=== PATIENT | female | born 1975 | race Caucasian/White ===

== ENCOUNTER 2016-11-10 22:56 | Emergency (ER) | payer MEDICAID ==
[2016-11-11 00:50] VITALS: BP 124/72
== END 2016-11-11 00:50 | disposition home or self-care (01) ==
LOC: ED 22:56
DX: S91.201A Unspecified open wound of right great toe with damage to nail, initial encounter (principal); E07.9 Disorder of thyroid, unspecified; W22.03XA Walked into furniture, initial encounter; Y93.89 Activity, other specified; Y99.8 Other external cause status; Y92.89 Other specified places as the place of occurrence of the external cause
CPT/HCPCS: J1885

== ENCOUNTER 2017-02-10 01:06 | Emergency (ER) | payer MEDICAID ==
[2017-02-10 01:53] VITALS: BP 126/89
== END 2017-02-10 01:53 | disposition home or self-care (01) ==
LOC: ED 01:06
DX: N39.0 Urinary tract infection, site not specified (principal)

== ENCOUNTER 2017-06-17 09:13 | Emergency (ER) | payer MEDICAID ==
[~2017-06-17] VITALS: Ht 152.4 cm; Wt 66.7 kg
[2017-06-17 09:44] VITALS: Ht 152.4 cm; Wt 66.7 kg
[2017-06-17 10:49] VITALS: BP 108/63
== END 2017-06-17 10:50 | disposition home or self-care (01) ==
LOC: ED 09:13
DX: J30.2 Other seasonal allergic rhinitis (principal); H83.8X9 Other specified diseases of inner ear, unspecified ear

== ENCOUNTER 2018-02-01 11:45 | Emergency (ER) | payer MEDICAID ==
[~2018-02-01] VITALS: Ht 157.5 cm; Wt 66.2 kg
[2018-02-01 11:58] VITALS: Ht 157.5 cm; Wt 66.2 kg
[2018-02-01 12:49] LABS: UA SPECIFIC GRAVITY 1.025 (1.005-1.035)
[2018-02-01 12:50] LABS: microscopic required? YES; urine erythrocyte 2+ (NEGATIVE)
[2018-02-01 15:10] VITALS: BP 109/66
== END 2018-02-01 15:10 | disposition home or self-care (01) ==
LOC: ED 11:45
PROVIDERS: Emergency Medicine
DX: R10.2 Pelvic and perineal pain (principal); R10.30 Lower abdominal pain, unspecified; M54.5 Low back pain; E03.9 Hypothyroidism, unspecified
CPT/HCPCS: 87491; 87591; J1885

== ENCOUNTER 2018-05-21 09:15 | Emergency (ER) | payer MEDICAID ==
[~2018-05-21] VITALS: Ht 154.9 cm; Wt 66.7 kg
[2018-05-21 09:24] VITALS: BP 108/68; Ht 154.9 cm; Wt 66.7 kg
== END 2018-05-21 10:09 | disposition home or self-care (01) ==
LOC: ED 09:15
DX: J20.9 Acute bronchitis, unspecified (principal); E03.9 Hypothyroidism, unspecified

== ENCOUNTER 2018-06-21 02:10 | Emergency (ER) | payer MEDICAID ==
[~2018-06-21] VITALS: Ht 162.6 cm; Wt 67.4 kg
[2018-06-21 02:17] VITALS: Ht 162.6 cm; Wt 67.4 kg
[2018-06-21 03:12] VITALS: BP 127/56
== END 2018-06-21 03:12 | disposition home or self-care (01) ==
LOC: ED 02:10
DX: R06.00 Dyspnea, unspecified (principal); E03.9 Hypothyroidism, unspecified
CPT/HCPCS: 36600; Q0092

== ENCOUNTER 2018-08-07 05:37 | Emergency (ER) | payer MEDICAID ==
[~2018-08-07] VITALS: Ht 154.9 cm; Wt 68.5 kg
[2018-08-07 05:41] VITALS: Ht 154.9 cm; Wt 68.5 kg
[2018-08-07 07:03] VITALS: BP 116/75
[2018-08-07 07:19] LABS: UA SPECIFIC GRAVITY <=1.005 (1.005-1.035); microscopic required? YES; urine erythrocyte TRACE (NEGATIVE)
== END 2018-08-07 07:03 | disposition home or self-care (01) ==
LOC: ED 05:37
PROVIDERS: Emergency Medicine
DX: N39.0 Urinary tract infection, site not specified (principal); E03.9 Hypothyroidism, unspecified; M19.90 Unspecified osteoarthritis, unspecified site
CPT/HCPCS: 87491; 87591; J1885

== ENCOUNTER 2018-08-07 21:05 | Emergency (ER) | payer MEDICAID ==
[~2018-08-07] VITALS: Ht 154.9 cm; Wt 68.0 kg
[2018-08-07 21:08] VITALS: Ht 154.9 cm; Wt 68.0 kg
[2018-08-08 00:29] VITALS: BP 113/64
== END 2018-08-08 00:26 | disposition home or self-care (01) ==
LOC: ED 21:05
DX: R20.0 Anesthesia of skin (principal); T37.8X5A Adverse effect of other specified systemic anti-infectives and antiparasitics, initial encounter; T40.4X5A Adverse effect of other synthetic narcotics, initial encounter; T37.3X5A Adverse effect of other antiprotozoal drugs, initial encounter; E03.9 Hypothyroidism, unspecified; M19.90 Unspecified osteoarthritis, unspecified site; Y92.89 Other specified places as the place of occurrence of the external cause
CPT/HCPCS: J1200; J2060; J2930; J3490; J7030

== ENCOUNTER 2018-08-08 20:48 | Emergency (ER) | payer MEDICAID ==
[~2018-08-08] VITALS: Ht 157.5 cm; Wt 68.5 kg
[2018-08-08 20:56] VITALS: Ht 157.5 cm; Wt 68.5 kg
[2018-08-08 21:36] LABS: BASOPHIL % 0.5 % (0-2); PLATELET COUNT 332 x10^3mcL (130-400); RED CELL DISTRIBUTION WIDTH 13.3 % (11.5-14.5)
[2018-08-08 21:45] LABS: CALCIUM 8.7 mg/dL (8.5-10.1); CARBON DIOXIDE 24.7 mmol/L (21-32); CHLORIDE SERUM 102 mmol/L (98-107); CREATININE SERUM 0.8 mg/dL (0.6-1.0); GFR1 > 60 mL/min; GLUCOSE SERUM 120 mg/dL (74-106); POTASSIUM SERUM 3.3 mmol/L (3.5-5.1); SODIUM SERUM 136 mmol/L (136-145)
[2018-08-08 21:54] LABS: AMPHETAMINE QUAL UR NONE DETECTED (See below)
[2018-08-08 21:57] LABS: ALKALINE PHOSPHATASE 59 U/L (46-116); ALT/SGPT 32 U/L (14-59); AMYLASE 29 U/L (25-115); AST/SGOT 20 U/L (15-37); BILIRUBIN TOTAL 0.6 mg/dL (0.20-1.00); LIPASE 130 IU/L (73-393); T4(THYROXINE) 9.3 ug/dL (4.7-13.3)
[2018-08-08 21:58] LABS: TOTAL PROTEIN, SERUM 8.3 g/dL (6.4-8.2)
[2018-08-08 23:23] VITALS: BP 106/71
== END 2018-08-08 23:24 | disposition home or self-care (01) ==
LOC: ED 20:48
PROVIDERS: Emergency Medicine
DX: F41.9 Anxiety disorder, unspecified (principal); N39.0 Urinary tract infection, site not specified; E03.9 Hypothyroidism, unspecified; M19.90 Unspecified osteoarthritis, unspecified site
CPT/HCPCS: 36415; 85378; G0480; J7030

== ENCOUNTER 2018-10-11 18:32 | Emergency (ER) | payer MEDICAID ==
[~2018-10-11] VITALS: Ht 154.9 cm; Wt 65.3 kg
[2018-10-11 18:38] VITALS: Ht 154.9 cm; Wt 65.3 kg
[2018-10-11 19:52] VITALS: BP 114/74
== END 2018-10-11 19:45 | disposition home or self-care (01) ==
LOC: ED 18:32
DX: G44.209 Tension-type headache, unspecified, not intractable (principal); M25.562 Pain in left knee; E03.9 Hypothyroidism, unspecified; M19.90 Unspecified osteoarthritis, unspecified site; Z88.1 Allergy status to other antibiotic agents; Z88.8 Allergy status to other drugs, medicaments and biological substances

== ENCOUNTER 2018-10-27 03:29 | Emergency (ER) | payer MEDICAID ==
[~2018-10-27] VITALS: Ht 152.4 cm; Wt 57.3 kg
[2018-10-27 03:36] VITALS: Ht 152.4 cm; Wt 57.3 kg
[2018-10-27 05:59] VITALS: BP 132/68
== END 2018-10-27 05:59 | disposition home or self-care (01) ==
LOC: ED 03:29
DX: M54.6 Pain in thoracic spine (principal); E03.9 Hypothyroidism, unspecified; M19.90 Unspecified osteoarthritis, unspecified site; Z88.8 Allergy status to other drugs, medicaments and biological substances; Z88.6 Allergy status to analgesic agent
CPT/HCPCS: J1885

== ENCOUNTER 2018-12-01 13:28 | Emergency (ER) | payer MEDICAID ==
[~2018-12-01] VITALS: Ht 157.5 cm; Wt 64.4 kg
[2018-12-01 13:36] VITALS: Ht 157.5 cm; Wt 64.4 kg
[2018-12-01 16:06] VITALS: BP 118/75
== END 2018-12-01 16:06 | disposition home or self-care (01) ==
LOC: EDBD 13:28 → ED 13:28
DX: K29.70 Gastritis, unspecified, without bleeding (principal); M19.90 Unspecified osteoarthritis, unspecified site; E03.9 Hypothyroidism, unspecified; Z88.1 Allergy status to other antibiotic agents; Z88.6 Allergy status to analgesic agent

== ENCOUNTER 2018-12-18 10:20 | Emergency (ER) | payer MEDICAID ==
[~2018-12-18] VITALS: Ht 160 cm; Wt 65.3 kg
[2018-12-18 10:27] VITALS: Ht 160 cm; Wt 65.3 kg
[2018-12-18 10:49] LABS: BASOPHIL % 0.5 % (0-2); PLATELET COUNT 299 x10^3mcL (130-400); RED CELL DISTRIBUTION WIDTH 12.8 % (11.5-14.5)
[2018-12-18 11:01] LABS: CALCIUM 8.6 mg/dL (8.5-10.1); CARBON DIOXIDE 29.1 mmol/L (21-32); CHLORIDE SERUM 104 mmol/L (98-107); CREATININE SERUM 0.8 mg/dL (0.6-1.0); GFR1 > 60 mL/min; GLUCOSE SERUM 86 mg/dL (74-106); POTASSIUM SERUM 3.9 mmol/L (3.5-5.1); SODIUM SERUM 138 mmol/L (136-145)
[2018-12-18 11:05] LABS: ALBUMIN 3.6 g/dL (3.4-5.0); ALKALINE PHOSPHATASE 63 U/L (46-116); ALT/SGPT 25 U/L (14-59); AST/SGOT 15 U/L (15-37); BILIRUBIN TOTAL 0.57 mg/dL (0.20-1.00); TOTAL PROTEIN, SERUM 7.3 g/dL (6.4-8.2)
--- NOTE | 2018-12-18 11:50 | NUR ---
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
--- NOTE | 2018-12-18 12:12 | NUR ---
URINE PLACED INTO LAB DROP AREA @1120. HOWEVER, RN NOTICED IT WAS SOMEHOW WEDGED BEHIND THE DROP AREA. MADE AWARE AND URINE TAKEN TO LAB BY TECH, ASKED TO BE A KAMARA.
[2018-12-18 12:37] LABS: microscopic required? YES; urine erythrocyte TRACE (NEGATIVE)
--- NOTE | 2018-12-18 12:45 | NUR ---
PT RESTING IN BED, APPEARS COMFORTABLE. NO C/O PAIN, FAMILY AT BEDSIDE.
--- NOTE | 2018-12-18 13:34 | NUR ---
PT AMBULATED WITH A STEADY GAIT TO BATHROOM. NO S/S OF DISTRESS
[2018-12-18 16:12] VITALS: BP 116/82
== END 2018-12-18 16:12 | disposition home or self-care (01) ==
LOC: ED 10:20 → DU 15:28 → ED 16:12
PROVIDERS: Emergency Medicine
DX: R10.31 Right lower quadrant pain (principal); E03.9 Hypothyroidism, unspecified; R11.0 Nausea; R35.0 Frequency of micturition; R22.43 Localized swelling, mass and lump, lower limb, bilateral; Z88.1 Allergy status to other antibiotic agents; Z88.6 Allergy status to analgesic agent
CPT/HCPCS: J1885; J7030

== ENCOUNTER 2019-05-03 00:20 | Emergency (ER) | payer MEDICAID ==
[~2019-05-03] VITALS: Ht 152.4 cm; Wt 64.0 kg
[2019-05-03 00:26] VITALS: Ht 152.4 cm; Wt 64.0 kg
[2019-05-03 01:29] VITALS: BP 115/70
== END 2019-05-03 01:29 | disposition home or self-care (01) ==
LOC: ED 00:20
DX: M54.5 Low back pain (principal); M19.90 Unspecified osteoarthritis, unspecified site; E03.9 Hypothyroidism, unspecified; Z88.1 Allergy status to other antibiotic agents; Z88.6 Allergy status to analgesic agent
CPT/HCPCS: J1885

== ENCOUNTER 2019-07-17 17:22 | Emergency (ER) | payer MEDICAID ==
[~2019-07-17] VITALS: Ht 157.5 cm; Wt 64.9 kg
[2019-07-17 17:28] VITALS: BP 116/72; Ht 157.5 cm; Wt 64.9 kg
[2019-07-17 18:17] LABS: BASOPHIL % 0.9 % (0-2); PLATELET COUNT 303 x10^3mcL (130-400)
[2019-07-17 18:26] LABS: CALCIUM 9.1 mg/dL (8.5-10.1); CHLORIDE SERUM 105 mmol/L (98-107); CREATININE SERUM 0.9 mg/dL (0.6-1.0); GFR1 > 60 mL/min; GLUCOSE SERUM 101 mg/dL (74-106); POTASSIUM SERUM 3.7 mmol/L (3.5-5.1); SODIUM SERUM 138 mmol/L (136-145)
[2019-07-17 18:30] LABS: ALBUMIN 3.8 g/dL (3.4-5.0); ALKALINE PHOSPHATASE 69 U/L (46-116); ALT/SGPT 33 U/L (14-59); AST/SGOT 21 U/L (15-37); BILIRUBIN TOTAL 0.68 mg/dL (0.20-1.00); LIPASE 144 IU/L (73-393); TOTAL PROTEIN, SERUM 7.7 g/dL (6.4-8.2)
[2019-07-17 19:11] LABS: T4(THYROXINE) 9.8 ug/dL (4.7-13.3)
== END 2019-07-17 20:26 | disposition home or self-care (01) ==
LOC: ED 17:22
PROVIDERS: Emergency Medicine
DX: M54.12 Radiculopathy, cervical region (principal); M54.6 Pain in thoracic spine; E03.9 Hypothyroidism, unspecified; M19.90 Unspecified osteoarthritis, unspecified site; Z88.6 Allergy status to analgesic agent; Z88.8 Allergy status to other drugs, medicaments and biological substances
CPT/HCPCS: 36415; J1885

== ENCOUNTER 2019-11-13 13:26 | Emergency (ER) | payer MEDICAID ==
[~2019-11-13] VITALS: Ht 157.5 cm; Wt 59.0 kg
[2019-11-13 13:33] VITALS: Ht 157.5 cm; Wt 59.0 kg
[2019-11-13 15:35] VITALS: BP 119/73
== END 2019-11-13 15:35 | disposition home or self-care (01) ==
LOC: ED 13:26
DX: M54.9 Dorsalgia, unspecified (principal); M19.90 Unspecified osteoarthritis, unspecified site; E03.9 Hypothyroidism, unspecified; Z88.1 Allergy status to other antibiotic agents; Z88.6 Allergy status to analgesic agent
CPT/HCPCS: J1885